=== PATIENT | female | born 1945 | race American Indian/Alaskan Native ===

== ENCOUNTER 2017-03-19 12:02 | Emergency (ER) | payer MEDICARE ==
[2017-03-19 12:17] VITALS: BP 170/66
[2017-03-19 13:40] LABS: Calcium 8.3 mg/dL (8.4-10.2); Potassium 4.9 mmol/L (3.6-5.0)
== END 2017-03-19 13:44 | disposition left against medical advice (07) ==
LOC: ED 12:02
DX: Z53.21 Procedure and treatment not carried out due to patient leaving prior to being seen by health care provider (principal)
CPT/HCPCS: 36415; 80048